=== PATIENT | male | born 1965 | race Caucasian/White ===

== ENCOUNTER 2020-10-05 14:18 | Emergency (ER) | payer MEDICARE ==
[~2020-10-05] VITALS: Ht 185.4 cm; Wt 80.5 kg
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
[2020-10-05] MEDS ORDERED: GABAPENTIN 300 MG CAPSULE PO ONE (16:00)
[2020-10-05 16:09] LABS: ALANINE AMINOTRANSFERASE 22 U/L (12-78); ALBUMIN 3.7 g/dL (3.4-5.0); ANION GAP 5 mmol/L (5-15); CALCIUM 8.4 mg/dL (8.5-10.1); CHLORIDE 111 mmol/L (98-107); CREATININE 0.88 mg/dL (0.7-1.3)
[2020-10-05 16:12] LABS: ALKALINE PHOSPHATASE 107 U/L (45-117); BASOPHILS % (AUTO) 1 % (0-1); BILIRUBIN,TOTAL 0.3 mg/dL (0.2-1.0); EOSINOPHILS % (AUTO) 3 % (1-7); LYMPHOCYTES % (AUTO) 25 % (22-44); MEAN CORPUSCULAR HEMOGLOBIN 30.6 pg (27.5-34.5); MEAN CORPUSCULAR HGB CONC 33.6 g/dL (33.2-36.2); MEAN PLATELET VOLUME 7.7 fL (7.4-10.4); MONOCYTES % (AUTO) 7 % (2-9); NEUTROPHILS % (AUTO) 64 % (42-75); PLATELET COUNT 234 x10^3/uL (130-400); RED BLOOD COUNT 4.49 x10^6/uL (4.38-5.82); RED CELL DISTRIBUTION WIDTH 13.3 % (9.4-14.8); SALICYLATE LEVEL < 1.7 mg/dL (2.8-20.0); TOTAL PROTEIN 6.4 g/dL (6.4-8.2)
[2020-10-05] MEDS ORDERED: GABAPENTIN 300 MG CAPSULE ONE (16:12)
[2020-10-05 16:13] LABS: MD NO
[2020-10-05 16:35] LABS: AMPHETAMINE SCREEN, URINE Negative (Negative); BARBITURATE SCREEN, URINE Negative (Negative); BENZODIAZEPINE SCREEN, URINE Negative (Negative); CANNABINOID SCREEN, URINE Positive (Negative); COCAINE SCREEN, URINE Negative (Negative); METHADONE SCREEN, URINE Negative (Negative); OPIATE SCREEN, URINE Negative (Negative)
--- NOTE | 2020-10-05 16:59 | NUR ---
pt sitting up in bed eating dinner talking to sitter.
--- NOTE | 2020-10-05 18:18 | NUR ---
pt sitting up in bed talking to sitter.
--- NOTE | 2020-10-05 18:51 | NUR ---
report given to Meg HERRON RN.
--- NOTE | 2020-10-05 18:53 | NUR ---
BEDSIDE REPORT FROM ALBERT SONICASINO CAGE MANAGER OF CARE AT THIS TIME
--- NOTE | 2020-10-05 19:00 | NUR ---
THROUGHPUT RN: TRISTIN NOTIFIED OF PT.
--- NOTE | 2020-10-05 19:24 | NUR ---
THROUGHPUT RN: [facility], [facility].
--- NOTE | 2020-10-05 19:32 | NUR ---
THROUGHPUT RN: TRISTIN DECLINED PT SECONDARY TO INSURANCE.
[2020-10-05 19:44] VITALS: BP 144/68
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
--- NOTE | 2020-10-05 20:35 | NUR ---
PT RESTING ON SANDRITA FERGUSON. SITTER IN SIGHT FOR SAFETY.
[2020-10-05] MEDS ORDERED: ONDANSETRON ODT 4 MG ONE (21:56)
--- NOTE | 2020-10-05 21:59 | NUR ---
PT C/O NAUSEA AND REQ STRONG DOSE OF VITAMIN D BECAUSE HIS BODY IS VERY STRESSED. PT MEDICATED PER MAR
[2020-10-05] MEDS ORDERED: ONDANSETRON ODT 4 MG PO ONE (22:00)
--- NOTE | 2020-10-05 23:08 | NUR ---
[facility] HERE TO TAKE PT TO [facility].
== END 2020-10-05 23:11 ==
LOC: ED 18:56
DX: R45.851 Suicidal ideations (principal); F32.9 Major depressive disorder, single episode, unspecified
CPT/HCPCS: 36415; 80053; 80299; 80307; 80320; 85025; 99285; Q0162; 80329; G0480

== ENCOUNTER 2020-10-22 13:09 | Emergency (ER) | payer MEDICARE ==
[~2020-10-22] VITALS: Ht 185.4 cm; Wt 76.8 kg
[2020-10-22 14:06] LABS: BASOPHILS % (AUTO) 1 % (0-1); EOSINOPHILS % (AUTO) 2 % (1-7); LYMPHOCYTES % (AUTO) 25 % (22-44); MEAN CORPUSCULAR HEMOGLOBIN 31.1 pg (27.5-34.5); MEAN CORPUSCULAR HGB CONC 34.1 g/dL (33.2-36.2); MEAN PLATELET VOLUME 6.8 fL (7.4-10.4); MONOCYTES % (AUTO) 7 % (2-9); NEUTROPHILS % (AUTO) 66 % (42-75); PLATELET COUNT 269 x10^3/uL (130-400); RED BLOOD COUNT 4.97 x10^6/uL (4.38-5.82); RED CELL DISTRIBUTION WIDTH 13.4 % (9.4-14.8)
[2020-10-22 14:07] LABS: MD NO
[2020-10-22 14:18] LABS: ALANINE AMINOTRANSFERASE 29 U/L (12-78); ALBUMIN 4.4 g/dL (3.4-5.0); ANION GAP 6 mmol/L (5-15); CALCIUM 9.1 mg/dL (8.5-10.1); CHLORIDE 105 mmol/L (98-107); CREATININE 0.92 mg/dL (0.7-1.3)
[2020-10-22 14:19] LABS: SALICYLATE LEVEL < 1.7 mg/dL (2.8-20.0)
[2020-10-22 14:20] LABS: ALKALINE PHOSPHATASE 101 U/L (45-117); BILIRUBIN,TOTAL 1.2 mg/dL (0.2-1.0); TOTAL PROTEIN 7.5 g/dL (6.4-8.2)
[2020-10-22 15:05] LABS: AMPHETAMINE SCREEN, URINE Negative (Negative); BARBITURATE SCREEN, URINE Negative (Negative); BENZODIAZEPINE SCREEN, URINE Negative (Negative); CANNABINOID SCREEN, URINE Positive (Negative); COCAINE SCREEN, URINE Negative (Negative); METHADONE SCREEN, URINE Negative (Negative); OPIATE SCREEN, URINE Negative (Negative)
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
--- NOTE | 2020-10-22 18:01 | NUR ---
Late entry: States homicidal and wants to addis a bank.
--- NOTE | 2020-10-22 18:16 | NUR ---
Pt provided with dinner.
--- NOTE | 2020-10-22 18:27 | NUR ---
PACKET FAXED TO [facility], [facility] AND [facility]
--- NOTE | 2020-10-22 18:47 | NUR ---
Per [facility], pt on "pending list." [facility] will call back when pt is accepted.
--- NOTE | 2020-10-22 19:16 | NUR ---
REPORT FROM FELY SONI. PT RESTING. EVEN RISE AND FALL OF CHEST OBSERVED. SITTER IN VIEW OF PT.
--- NOTE | 2020-10-22 21:06 | NUR ---
PT RESTING. EVEN RISE AND FALL OF CHEST OBSERVED. SITTER IN VIEW OF PT.
--- NOTE | 2020-10-22 21:31 | NUR ---
pt given soda upon request. pt has no other needs at this time.
[2020-10-22] MEDS ORDERED: ACETAMINOPHEN 500 MG TABLET ONE (21:53)
[2020-10-22] MEDS ORDERED: ACETAMINOPHEN 500 MG TABLET PO ONE (22:00)
--- NOTE | 2020-10-22 22:01 | NUR ---
PT GIVEN TYLENOL FOR PAIN. PT RESTING WITH NO OTHER NEEDS. SITTER IN VIEW OF PT
[2020-10-22 22:18] VITALS: BP 115/63
--- NOTE | 2020-10-23 00:45 | NUR ---
PT RESTING. EVEN RISE AND FALL OF CHEST OBSERVED. SITTER IN VIEW OF PT.
--- NOTE | 2020-10-23 02:06 | NUR ---
PT RESTING. EVEN RISE AND FALL OF CHEST OBSERVED. SITTER IN VIEW OF PT.
[2020-10-23] MEDS ORDERED: ACETAMINOPHEN 500 MG TABLET ONE ×2 (04:28→15:11)
[2020-10-23] MEDS ORDERED: ACETAMINOPHEN 500 MG TABLET PO ONE (04:30)
--- NOTE | 2020-10-23 04:34 | NUR ---
PT HAS A HEADACHE. PT MEDICATED WITH TYLENOL. PT HAS NO OTHER NEEDS AT THIS TIME. SITTER IN VEW OF PT
--- NOTE | 2020-10-23 05:02 | NUR ---
PT MOVED TO HOSPITAL BED. PT RESTING WITH NO OTHER NEEDS AT THIS TIME. SITTER IN VEW OF PT
--- NOTE | 2020-10-23 05:53 | NUR ---
PT ASSISTED TO BATHROOM BY WHEEL CHAIR. PT BACK TO ROOM AND HAS NO OTHER NEEDS. SITTER IN VIEW OF PT
--- NOTE | 2020-10-23 06:56 | NUR ---
REPORT TO KATHERIN SONI
--- NOTE | 2020-10-23 07:16 | NUR ---
REC BS REPORT PT RESTING SITTER IN THE FUENTES WATCHING THE PT
[2020-10-23] MEDS ORDERED: ONDANSETRON ODT 4 MG ONE (09:53)
[2020-10-23] MEDS ORDERED: ONDANSETRON ODT 4 MG PO ONE (10:00)
--- NOTE | 2020-10-23 12:27 | NUR ---
TASK RN, MEAL PROVIDED. PT REFUSING TRAY AND REQUESTS OTHER ITEMS. PT PROVIDED CHICKEN BROTH, SALTINES, AND APPLE SAUCE.
--- NOTE | 2020-10-23 12:29 | NUR ---
I AM ASSUMING CARE OF THIS PT FROM KATHERIN (ZACHARIAH) WHILE HE ENJOYS A LUNCH BREAK. SBAR WAS EXCHANGED AT THE BEDSIDE.
[2020-10-23] MEDS ORDERED: ACETAMINOPHEN 650 MG/20.3 ML UDC PO ONE (15:10)
[2020-10-23] MEDS ORDERED: QUETIAPINE 100MG TABLET PO SCH (21:00)
== END 2020-10-23 15:52 ==
LOC: ED 15:56
DX: R45.851 Suicidal ideations (principal); F32.9 Major depressive disorder, single episode, unspecified
CPT/HCPCS: 36415; 80053; 80299; 80307; 80320; 80329; 85025; 99285; Q0162; G0480

== ENCOUNTER 2021-02-26 00:46 | Emergency (ER) | payer MEDICARE ==
[~2021-02-26] VITALS: Ht 193 cm; Wt 85.0 kg
--- NOTE | 2021-02-26 01:04 | NUR ---
TASK RN: PT TO ED WITH CO SA, "I TOOK A HANDFULL OF ALL OF MY PILLS- SEROQUEL, GABAPENTIN, AND A BUNCH OF OTHERS". PT REPORTS BEING HOSPITALIZED FOR SI/SA "OVER 100 TIMES". "I'M HOMELESS AND I REFUSE TO TAKE MY MEDS FOR PAIN AND DEPRESSION UNLESS I'M HOSPITALIZED. I WANT TO BE . I WANT TO BE ADMITTED." PT THREATENING STAFF WITH SI IF NOT ADMITTED TO PSYCH FACILITY. LAST ADMIT, PER PT WAS IN [facility] ONE MONTH AGO. PT COOPERATIVE. AMBULATED STEADILY W CRUTCHES TO ED ROOM 2. ROOM SECURE. PT BELONGINGS COLLECTED BY ZACHARIAH ESTRADA. SITTER REQUESTED. EKG COMPLETED IN [facility]IV[facility] LOR. VSS. PT DENIES PAIN/DIZZINESS/PALPITATIONS/N/V.
--- NOTE | 2021-02-26 01:09 | NUR ---
task rn: pt placed in a secured room. all belongings placed in a bag and into locker.
--- NOTE | 2021-02-26 01:10 | NUR ---
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
--- NOTE | 2021-02-26 01:21 | NUR ---
sitter at doorway for frequent checks
[2021-02-26 01:26] LABS: BASOPHILS % (AUTO) 1 % (0-1); EOSINOPHILS % (AUTO) 3 % (1-7); LYMPHOCYTES % (AUTO) 32 % (22-44); MEAN CORPUSCULAR HEMOGLOBIN 31.3 pg (27.5-34.5); MEAN CORPUSCULAR HGB CONC 33.7 g/dL (33.2-36.2); MEAN PLATELET VOLUME 7.3 fL (7.4-10.4); MONOCYTES % (AUTO) 9 % (2-9); NEUTROPHILS % (AUTO) 56 % (42-75); PLATELET COUNT 244 x10^3/uL (130-400); RED BLOOD COUNT 4.53 x10^6/uL (4.38-5.82); RED CELL DISTRIBUTION WIDTH 13.8 % (9.4-14.8)
[2021-02-26 01:34] LABS: CHLORIDE 104 mmol/L (98-107)
[2021-02-26 01:35] LABS: AMPHETAMINE SCREEN, URINE Negative (Negative); BARBITURATE SCREEN, URINE Negative (Negative); BENZODIAZEPINE SCREEN, URINE Negative (Negative); CANNABINOID SCREEN, URINE Positive (Negative); COCAINE SCREEN, URINE Negative (Negative); METHADONE SCREEN, URINE Negative (Negative); OPIATE SCREEN, URINE Negative (Negative)
[2021-02-26 01:35] LABS: ALANINE AMINOTRANSFERASE 31 U/L (12-78); ALBUMIN 3.5 g/dL (3.4-5.0); ANION GAP 6 mmol/L (5-15); CALCIUM 8.8 mg/dL (8.5-10.1); CREATININE 0.99 mg/dL (0.7-1.3)
--- NOTE | 2021-02-26 01:35 | NUR ---
PT ASLEEP IN BED, ALL NEEDS IN REACH, CALL LIGHT IN REACH, NAD AT THIS TIME, GARAGE DOORS DOWN, SITTER IN LINE OF SIGHT
[2021-02-26 01:45] LABS: ALKALINE PHOSPHATASE 95 U/L (45-117); BILIRUBIN,TOTAL 0.5 mg/dL (0.2-1.0); TOTAL PROTEIN 6.7 g/dL (6.4-8.2)
[2021-02-26 01:51] LABS: SALICYLATE LEVEL < 1.7 mg/dL (2.8-20.0)
--- NOTE | 2021-02-26 02:07 | NUR ---
Throughput RN: Telepsych consult requested at this time.
--- NOTE | 2021-02-26 02:30 | NUR ---
PT ASLEEP IN BED, ALL NEEDS IN REACH, CALL LIGHT IN REACH, NAD AT THIS TIME, SITTER IN LINE OF SIGHT, GARAGE DOORS DOWN
--- NOTE | 2021-02-26 03:10 | NUR ---
PT ASLEEP IN BED, ALL NEEDS IN REACH, CALL LIGHT IN REACH, NAD AT THIS TIME, SITTER IN LINE OF SIGHT, GARAGE DOORS DOWN
--- NOTE | 2021-02-26 04:27 | NUR ---
DR CARL ON TELEPSYCH TO EVALUATE PT
--- NOTE | 2021-02-26 04:53 | NUR ---
PT EVALUATED BY DR CARL ON TELEPSYCH AND DR CARL SUGGESTED DISCHARGE HOME WITH OUTPATIENT MENTAL HEALTH
[2021-02-26 04:55] VITALS: BP 125/63
--- NOTE | 2021-02-26 06:09 | NUR ---
WHEN THIS RN WENT TO CLEAN ROOM AFTER PT WAS DISCHARGED AND THIS RN FOUND ALL DISCHARGE PAPERS ON THE FLOOR ALONG WITH THE REFERRALS THAT WERE GIVEN TO PT
== END 2021-02-26 05:05 | disposition home or self-care (01) ==
LOC: ED 01:00
DX: F32.9 Major depressive disorder, single episode, unspecified (principal); F12.10 Cannabis abuse, uncomplicated; Z72.9 Problem related to lifestyle, unspecified; R94.31 Abnormal electrocardiogram [ECG] [EKG]
CPT/HCPCS: 36415; 80053; 80299; 80307; 80320; 80329; 84443; 85025; 93005; 99284; G0480